=== PATIENT | male | born 1965 | race Caucasian/White ===

== ENCOUNTER 2019-12-10 12:11 | Outpatient (REF) | payer OTHER, SELFPAY ==
--- NOTE | 2019-12-10 | XR_ITS ---
EXAMINATION: XR CHEST CLINICAL INFORMATION: Positive Covid test COMPARISON: None TECHNIQUE: 2 views of the chest were obtained. FINDINGS: The cardiac and mediastinal contours are normal. The lung volumes are low. There is biapical pleural thickening. There is a triangular shaped density seen at the right lung apex measuring approximately 3 cm. Atypical distribution be atypical for Covid infection. The lungs are otherwise clear. There is no pleural effusion or pneumothorax. There are degenerative changes of the spine. IMPRESSION: Biapical pleural thickening. 3 cm asymmetric parenchymal density at the right lung apex. This would be atypical location for Covid infection. Comparison with old outside chest x-rays if available is recommended. Otherwise, short-term follow-up chest x-ray would be recommended and if radiographic abnormality persists, chest CT scan should be considered.
== END 2019-12-10 12:12 | disposition home or self-care (01) ==
LOC: HO.XRAY 12:11
PROVIDERS: PCP Internal Medicine; Visit Provider Internal Medicine
DX: R05 Cough (principal); Z86.19 Personal history of other infectious and parasitic diseases
CPT/HCPCS: 71046

== ENCOUNTER 2019-12-17 15:03 | Outpatient (REF) | payer OTHER, SELFPAY ==
--- NOTE | 2019-12-17 15:31 | CT_ITS ---
EXAMINATION: CT CHEST WITH CONTRAST CLINICAL INFORMATION: Kidney disease. Renal impairment. Positive Covid 19. COMPARISON: Chest x-ray 12/10/2019 TECHNIQUE: Multidetector volumetric CT imaging of the chest was obtained after the administration of 65 mL of Omnipaque 350 intravenous contrast without immediate adverse reactions. Axial MIP volume rendering provided. Sagittal and coronal reformatted images were obtained. This CT examination was performed using dose optimization techniques as appropriate, variously including the following: *Automated exposure control *Adjustment of mA and/or kV according to patient size (this includes techniques or standardized protocols for targeted exams where dose is matched to indication/reason for exam; i.e. extremities or head) *Use of iterative reconstruction technique DLP: 343 mGy-cm FINDINGS: LUNGS: There is mild paraseptal emphysematous change of lungs. There is bilateral apical pleural-parenchymal scarring, right greater than left. There is no acute infiltrate. There is mild bronchiectasis at the right upper lobe, coronal image 54. There is no interstitial lung disease. There is no suspicious lung nodules. MEDIASTINUM: There is no mediastinal mass or significant lymphadenopathy. Heart size is normal. There is no pericardial effusion. There is no aneurysm of aorta. Small volume of coronary artery calcifications. PLEURA: There is no pleural effusion. No pleural mass or thickening. AXILLA: No lymphadenopathy. UPPER ABDOMEN: Low attenuation of liver parenchyma due to fatty change. No focal lesions of the solid organs in the upper abdomen. No abdominal ascites of the upper abdomen. OSSEOUS STRUCTURES: Degenerative spondylosis of dorsal spine. No suspicious osseous lesion. IMPRESSION: 1. No acute abnormality of the chest. Mild paraseptal emphysematous changes of lungs. 2. Bilateral pleural-parenchymal scarring. Mild bronchiectasis right upper lobe. 3. Diffuse fatty change of liver.
[2019-12-17 16:08] LABS: Blood Urea Nitrogen 8 mg/dL (9-16); Estimated Glomerular Filt Rate > 60
[2019-12-17] MEDS: iohexoL 350 MG/ML 100 ML INFUS..BTL IV (16:31)
== END 2019-12-17 15:04 | disposition home or self-care (01) ==
LOC: HO.CT 15:03
PROVIDERS: PCP Internal Medicine; Visit Provider Internal Medicine
DX: Z01.812 Encounter for preprocedural laboratory examination (principal); U07.1 COVID-19
CPT/HCPCS: 71260; 82565; 84520

== ENCOUNTER 2020-01-20 14:51 | Outpatient (REF) | payer OTHER, SELFPAY ==
--- NOTE | 2020-01-20 | XR_ITS ---
EXAMINATION: XR WRIST, LEFT CLINICAL INFORMATION: Left wrist pain. COMPARISON: None TECHNIQUE: PA, lateral, and oblique views of the left wrist. FINDINGS: There is no fracture or dislocation. The carpal rows are well aligned. Joint spaces are maintained. The soft tissues are unremarkable. XR/XR wrist LT min 3V IMPRESSION: No fracture or malalignment.
== END 2020-01-20 14:52 | disposition home or self-care (01) ==
LOC: HO.HMGCX 14:51
PROVIDERS: PCP Internal Medicine; Visit Provider Internal Medicine
DX: M25.532 Pain in left wrist (principal)
CPT/HCPCS: 73110

== ENCOUNTER 2020-08-31 13:46 | Outpatient (REF) | payer OTHER, SELFPAY ==
--- NOTE | ~2020-08-31 | XR_ITS ---
EXAMINATION: XR LUMBOSACRAL SPINE CLINICAL INFORMATION: Low back pain COMPARISON: None TECHNIQUE: Three views of the lumbosacral spine. FINDINGS: Bone alignment is normal. No fracture or dislocation is seen. There is mild degenerative disc disease at L5-S1. There is mild degenerative spondylosis at L1-L2. There is lower lumbar spine facet arthritis. XR/XR lumbar spine 2-3V IMPRESSION: Mild degenerative changes.
== END 2020-08-31 13:47 | disposition home or self-care (01) ==
LOC: HO.HMGCX 13:46
PROVIDERS: PCP Internal Medicine; Visit Provider Internal Medicine
DX: M54.5 Low back pain (principal)
CPT/HCPCS: 72100

== ENCOUNTER 2022-04-12 14:02 | Outpatient (REF) | payer BC, SELFPAY ==
--- NOTE | ~2022-04-12 | XR_ITS ---
EXAMINATION: XR LUMBOSACRAL SPINE CLINICAL INFORMATION: Lower back pain COMPARISON: 08/31/2020 TECHNIQUE: Three views of the lumbosacral spine. FINDINGS: No fracture or subluxation. Vertebral body height and alignment maintained. Disc spaces are maintained with small multilevel endplate osteophytes. The sacroiliac joints are symmetric. The sacrum is intact. Normal bowel gas pattern. XR/XR lumbar spine 2-3V IMPRESSION: Mild degenerative changes of the lumbar spine.
== END 2022-04-12 14:03 | disposition home or self-care (01) ==
LOC: HO.HMGCX 14:02
PROVIDERS: PCP Internal Medicine; Visit Provider Internal Medicine
DX: M54.50 Low back pain, unspecified (principal)
CPT/HCPCS: 72100